=== PATIENT | female | born 1985 | race Caucasian/White ===

== ENCOUNTER 2018-02-16 16:42 | Emergency (ER) | payer MEDICAID, OTHER ==
[~2018-02-16] VITALS: Ht 170.2 cm; Wt 64.0 kg
[2018-02-16 16:50] VITALS: BP 105/72
== END 2018-02-16 17:57 | disposition home or self-care (01) ==
LOC: ED 17:52
DX: S20.212A Contusion of left front wall of thorax, initial encounter (principal); R10.9 Unspecified abdominal pain; M25.512 Pain in left shoulder; Y04.0XXA Assault by unarmed brawl or fight, initial encounter; Y93.89 Activity, other specified; Y92.89 Other specified places as the place of occurrence of the external cause; Y99.8 Other external cause status
CPT/HCPCS: 29515; 99284

== ENCOUNTER 2018-02-18 01:08 | Emergency (ER) | payer MEDICAID ==
[~2018-02-18] VITALS: Ht 170.2 cm; Wt 67.3 kg
[2018-02-18 01:10] VITALS: BP 125/81
[2018-02-18] MEDS ORDERED: IBUPROFEN 200 MG TABLET ONE (01:37)
[2018-02-18] MEDS ORDERED: ACETAMINOPHEN 500 MG TABLET ONE (01:38)
[2018-02-18] MEDS ORDERED: IBUPROFEN 200 MG TABLET PO ONE (02:00)
[2018-02-18] MEDS ORDERED: ACETAMINOPHEN 500 MG TABLET PO ONE (02:00)
== END 2018-02-18 01:47 | disposition home or self-care (01) ==
LOC: ED 01:41
DX: S20.212A Contusion of left front wall of thorax, initial encounter (principal); Y08.89XA Assault by other specified means, initial encounter; Y93.89 Activity, other specified; Y92.009 Unspecified place in unspecified non-institutional (private) residence as the place of occurrence of the external cause; Y99.8 Other external cause status
CPT/HCPCS: 99283

== ENCOUNTER 2018-02-26 18:14 | Emergency (ER) | payer MEDICAID ==
[~2018-02-26] VITALS: Ht 170.2 cm; Wt 68.0 kg
[2018-02-26 18:19] VITALS: BP 128/86
[2018-02-26 18:59] LABS: BASOPHILS # (AUTO) 0.04 x10^3/uL (0-0.1); BASOPHILS % (AUTO) 1 % (0-1); EOSINOPHILS # (AUTO) 0.02 x10^3/uL (0-0.4); EOSINOPHILS % (AUTO) 0 % (1-7); LYMPHOCYTES # (AUTO) 1.99 x10^3/uL (1-3.4); LYMPHOCYTES % (AUTO) 28 % (22-44); MD NO; MEAN CORPUSCULAR HEMOGLOBIN 30.5 pg (27.0-34.8); MEAN CORPUSCULAR HGB CONC 33.9 g/dL (32.4-35.8); MEAN CORPUSCULAR VOLUME 89.9 fL (80-100); MONOCYTES # (AUTO) 0.33 x10^3/uL (0.2-0.8); MONOCYTES % (AUTO) 5 % (2-9); NEUTROPHILS # (AUTO) 4.67 x10^3/uL (1.8-6.8); NEUTROPHILS % (AUTO) 66 % (42-75); PLATELET COUNT 345 x10^3/uL (130-400); RED BLOOD COUNT 4.57 x10^6/uL (3.82-5.3); RED CELL DISTRIBUTION WIDTH 15.6 % (9.6-15.2)
[2018-02-26] MEDS ORDERED: ASPIRIN 81 MG TABLET CHEW PO ONE (19:00)
[2018-02-26 19:11] LABS: ALBUMIN 3.7 g/dL (3.4-5.0); ANION GAP 8 mmol/L (5-15); CHLORIDE 106 mmol/L (98-107)
[2018-02-26 19:17] LABS: ALANINE AMINOTRANSFERASE 47 U/L (12-78); ALKALINE PHOSPHATASE 94 U/L (45-117); BILIRUBIN,TOTAL 0.4 mg/dL (0.2-1.0); CREATININE 0.71 mg/dL (0.55-1.02); TOTAL PROTEIN 8.3 g/dL (6.4-8.2); TROPONIN I < 0.015 ng/mL (0.000-0.045)
== END 2018-02-26 20:31 | disposition left against medical advice (07) ==
LOC: ED 20:25
DX: R07.89 Other chest pain (principal)
CPT/HCPCS: 36415; 71046; 80053; 84484; 85025; 93005; 99284

== ENCOUNTER 2019-03-12 17:36 | Emergency (ER) | payer MEDICAID ==
[~2019-03-12] VITALS: Ht 170.2 cm; Wt 72.0 kg
--- NOTE | 2019-03-12 18:10 | NUR ---
Pt to room from lobby.
--- NOTE | 2019-03-12 18:23 | NUR ---
PT REPORTS "THINGS ARE CRAWLING UNDER MY SKIN". PT HAS 2 CRUSTING RADMAES SIZED WOUNDS ON MEDIAL ASPECT OF RUE. PT ADMITS TO CURRENT METH USE. FRIEND AT BEDSIDE.
[2019-03-12 18:26] VITALS: BP 132/89
== END 2019-03-12 18:48 | disposition home or self-care (01) ==
LOC: ED 18:42
DX: L03.113 Cellulitis of right upper limb (principal); L02.413 Cutaneous abscess of right upper limb
CPT/HCPCS: 99283

== ENCOUNTER 2020-01-10 18:51 | Emergency (ER) | payer MEDICAID ==
[~2020-01-10] VITALS: Ht 167.6 cm; Wt 109.1 kg
[2020-01-10 19:41] LABS: BASOPHILS # (AUTO) 0.04 x10^3/uL (0-0.1); BASOPHILS % (AUTO) 1 % (0-1); EOSINOPHILS # (AUTO) 0.12 x10^3/uL (0-0.4); EOSINOPHILS % (AUTO) 2 % (1-7); LYMPHOCYTES # (AUTO) 1.89 x10^3/uL (1-3.4); LYMPHOCYTES % (AUTO) 26 % (22-44); MD NO; MEAN CORPUSCULAR HEMOGLOBIN 30.9 pg (27.0-34.8); MEAN CORPUSCULAR HGB CONC 33.6 g/dL (32.4-35.8); MEAN CORPUSCULAR VOLUME 92.2 fL (80-100); MEAN PLATELET VOLUME 8.1 fL (7.4-10.4); MONOCYTES # (AUTO) 0.45 x10^3/uL (0.2-0.8); MONOCYTES % (AUTO) 6 % (2-9); NEUTROPHILS # (AUTO) 4.81 x10^3/uL (1.8-6.8); NEUTROPHILS % (AUTO) 66 % (42-75); PLATELET COUNT 345 x10^3/uL (130-400); RED BLOOD COUNT 4.35 x10^6/uL (3.82-5.3)
[2020-01-10 19:50] LABS: ALANINE AMINOTRANSFERASE 67 U/L (12-78); ALBUMIN 3.4 g/dL (3.4-5.0); ANION GAP 7 mmol/L (5-15); CALCIUM 8.6 mg/dL (8.5-10.1); CHLORIDE 104 mmol/L (98-107)
[2020-01-10 19:55] LABS: ALKALINE PHOSPHATASE 93 U/L (45-117); BILIRUBIN,TOTAL 0.2 mg/dL (0.2-1.0); TOTAL PROTEIN 7.8 g/dL (6.4-8.2)
[2020-01-10 20:09] LABS: CULTURE INDICATED? YES; MICROSCOPIC AUTO
[2020-01-10 20:35] LABS: AMPHETAMINE SCREEN, URINE Positive (Negative); BARBITURATE SCREEN, URINE Negative (Negative); BENZODIAZEPINE SCREEN, URINE Negative (Negative); CANNABINOID SCREEN, URINE Positive (Negative); COCAINE SCREEN, URINE Negative (Negative); METHADONE SCREEN, URINE Negative (Negative); OPIATE SCREEN, URINE Negative (Negative)
--- NOTE | 2020-01-10 21:07 | NUR ---
Patient given discharge instructions and they have confirmed that they understand the instructions. Patient ambulatory with steady gait.
[2020-01-10 21:08] VITALS: BP 134/93
== END 2020-01-10 21:10 | disposition home or self-care (01) ==
LOC: ED 20:45
DX: N30.00 Acute cystitis without hematuria (principal); K29.00 Acute gastritis without bleeding; F15.129 Other stimulant abuse with intoxication, unspecified; F12.129 Cannabis abuse with intoxication, unspecified; F10.10 Alcohol abuse, uncomplicated; R10.11 Right upper quadrant pain; Z98.51 Tubal ligation status; Z72.9 Problem related to lifestyle, unspecified; Y90.0 Blood alcohol level of less than 20 mg/100 ml
CPT/HCPCS: 36415; 76700; 80053; 80307; 81001; 83690; 84703; 85025; 87077; 87086; 87186; 99284

== ENCOUNTER 2020-02-13 05:46 | Emergency (ER) | payer MEDICAID ==
[~2020-02-13] VITALS: Ht 171.4 cm; Wt 74.9 kg
[2020-02-13] MEDS ORDERED: ONDANSETRON 2MG/ML, 2ML ONE (06:41)
[2020-02-13] MEDS ORDERED: HYDROmorphone 1 MG/ML, 1ML INJ ONE (06:41)
[2020-02-13] MEDS ORDERED: ACYCLOVIR IV STA ×2 (06:42→07:00)
[2020-02-13] MEDS ORDERED: SODIUM CHLORIDE 0.9% IV STA (06:42)
[2020-02-13 06:44] LABS: WET PREP WBCS FEW (FEW)
[2020-02-13] MEDS ORDERED: AZITHROMYCIN 500 MG TABLET ONE (06:51)
[2020-02-13 06:59] LABS: CLUE CELLS NONE SEEN (NONE SEEN)
[2020-02-13] MEDS ORDERED: AZITHROMYCIN 500 MG TABLET PO ONE (07:00)
[2020-02-13] MEDS ORDERED: SODIUM CHLORIDE FLUSH 10ML SYR IVF ONE (07:00)
[2020-02-13] MEDS ORDERED: HYDROmorphone 1 MG/ML, 1ML INJ IVPush PRN (07:00)
[2020-02-13] MEDS ORDERED: ONDANSETRON 2MG/ML, 2ML IVPush ONE (07:00)
[2020-02-13] MEDS ORDERED: LIDOCAINE 2% VISCOUS 15 ML UDC ONE (07:03)
[2020-02-13] MEDS ORDERED: CEFTRIAXONE PMX 1GM/50ML 50 ML IV ONE (07:16)
[2020-02-13] MEDS ORDERED: ACYCLOVIR OINT 5%, 15GM TP ONE (07:17)
[2020-02-13] MEDS ORDERED: LIDOCAINE 2% VISCOUS 15 ML UDC MM ONE (07:21)
[2020-02-13] MEDS ORDERED: ACYCLOVIR 800 MG in SODIUM CHLORIDE 0.9% 250 ML IV SCH (07:30)
--- NOTE | 2020-02-13 07:45 | NUR ---
pt resting calmly in bed, resting on belly. ordered antiviral started. pt vss. will continue to monitor. no c/o pain at this time.
[2020-02-13] MEDS ORDERED: CEFTRIAXONE 500 MG in DEXTROSE 5% 50 ML IV SCH (08:00)
[2020-02-13] MEDS ORDERED: metroNIDAZOLE 500 MG TABLET PO ONE (08:00)
--- NOTE | 2020-02-13 08:13 | NUR ---
pt continues to rest in bed with eyes closed. no stated needs currently.
--- NOTE | 2020-02-13 08:45 | NUR ---
TASK RN: CALL TO PHARM REGARDING ALLERGY AND ROCEPHIN. PER PHARMACIST LIKELIHOOD IS LOW FOR RXN, BUT TO "BE ON THE LOOKOUT" PT EDUCATED ON SYMPTOMS AND TO CALL IF RN IS NOT IN ROOM.
--- NOTE | 2020-02-13 09:02 | NUR ---
TASK RN NOTE: NAD NOTED IN PT. TOLERATING ABX WELL.
[2020-02-13] MEDS ORDERED: metroNIDAZOLE 500 MG TABLET ONE (09:17)
[2020-02-13] MEDS ORDERED: LIDOCAINE JELLY 2%, 30GM TP ONE (09:30)
--- NOTE | 2020-02-13 10:02 | NUR ---
PT CONTINUES TO REST IN BED WITH EYES CLOSED. IV ABX, STILL INFUSING. IV IS POSITIONAL AFFECTING ABX INFUSION. WILL CONTINUE TO MONITOR. PT AWARE TO KEEP RIGTH ARM STRAIGHT.
[2020-02-13 10:35] VITALS: BP 113/76
== END 2020-02-13 10:37 | disposition home or self-care (01) ==
LOC: ED 06:13
DX: A59.8 Trichomoniasis of other sites (principal); A54.02 Gonococcal vulvovaginitis, unspecified; F17.200 Nicotine dependence, unspecified, uncomplicated
CPT/HCPCS: 87210; 87491; 87591; 87808; 96365; 96366; 96368; 96375; 99285; J0133; J0696; J1170; J2405; J7050

== ENCOUNTER 2020-06-24 20:02 | Emergency (ER) | payer MEDICAID ==
[~2020-06-24] VITALS: Ht 170.2 cm; Wt 73.5 kg
[2020-06-24 20:07] VITALS: BP 130/79
--- NOTE | 2020-06-24 21:35 | NUR ---
not in lobby
--- NOTE | 2020-06-24 21:35 | NUR ---
pt called to room from lobby
--- NOTE | 2020-06-24 21:47 | NUR ---
not in lobby
--- NOTE | 2020-06-24 22:13 | NUR ---
pt not in lobby when called for room. pt lwbs.
== END 2020-06-24 22:14 | disposition left against medical advice (07) ==
LOC: ED 21:30
DX: R20.2 Paresthesia of skin (principal); R42 Dizziness and giddiness; R00.0 Tachycardia, unspecified; Z53.21 Procedure and treatment not carried out due to patient leaving prior to being seen by health care provider
CPT/HCPCS: 93005

== ENCOUNTER 2020-07-28 08:02 | Emergency (ER) | payer MEDICAID ==
[~2020-07-28] VITALS: Ht 171.4 cm; Wt 75.9 kg
[2020-07-28 09:00] VITALS: BP 142/98
--- NOTE | 2020-07-28 09:01 | NUR ---
PT C/O VAGINAL SWELLING AND PAIN. THIS STARTED 3 DAYS AGO. PT HAS ODOR AND DISCHARGE FROM THE VAGINAL AREA. PT IS UNSURE IF SHE IS . PT HAS HAD A RECENT BOUT OF NAUSEA AND VOMITING ABOUT 1 WEEK AGO.
[2020-07-28] MEDS ORDERED: CEFTRIAXONE 250 MG ONE (09:12)
[2020-07-28] MEDS ORDERED: AZITHROMYCIN 250 MG TABLET ONE (09:14)
[2020-07-28] MEDS ORDERED: OXYcodone/APAP 5/325MG TABLET ONE (09:14)
[2020-07-28] MEDS ORDERED: LIDOCAINE-MPF 1%, 2ML ONE (09:15)
--- NOTE | 2020-07-28 09:28 | NUR ---
PT MEDICATED PER MAR
[2020-07-28] MEDS ORDERED: OXYcodone/APAP 5/325MG TABLET PO ONE (09:30)
[2020-07-28] MEDS ORDERED: CEFTRIAXONE 250 MG IM ONE (09:30)
[2020-07-28] MEDS ORDERED: AZITHROMYCIN 500 MG TABLET PO ONE (09:30)
[2020-07-28 09:45] LABS: CLUE CELLS NONE SEEN (NONE SEEN); WET PREP WBCS FEW (FEW)
== END 2020-07-28 10:11 | disposition home or self-care (01) ==
LOC: ED 08:54
DX: A60.04 Herpesviral vulvovaginitis (principal); F17.210 Nicotine dependence, cigarettes, uncomplicated
CPT/HCPCS: 87210; 87491; 87591; 87808; 96372; 99283; J0696

== ENCOUNTER 2021-06-20 17:27 | Emergency (ER) | payer MEDICAID ==
[~2021-06-20] VITALS: Ht 171.4 cm; Wt 83.6 kg
[2021-06-20 17:37] VITALS: BP 154/104
== END 2021-06-20 19:50 | disposition home or self-care (01) ==
LOC: ED 19:35
DX: T25.522A Corrosion of first degree of left foot, initial encounter (principal); L03.116 Cellulitis of left lower limb; T32.0 Corrosions involving less than 10% of body surface; F17.210 Nicotine dependence, cigarettes, uncomplicated; X08.8XXA Exposure to other specified smoke, fire and flames, initial encounter; Y93.89 Activity, other specified; Y92.89 Other specified places as the place of occurrence of the external cause; Y99.8 Other external cause status